=== PATIENT | male | born 1995 | race Caucasian/White ===

== ENCOUNTER 2018-11-15 01:54 | Inpatient (IN) ==
[2018-11-15] MEDS ORDERED: Mag Hydrox/Al Hydrox/Simeth 30 ML UDC PO PRN (03:49)
[2018-11-15] MEDS ORDERED: MOM Conc 10 ML UD.LIQ PO PRN (03:49)
[2018-11-15] MEDS ORDERED: *HR* LORazepam 2 MG/ML VIAL IM PRN (03:49)
[2018-11-15] MEDS ORDERED: *HR* LORazepam 1 MG TABLET PO PRN (03:49)
[2018-11-15] MEDS ORDERED: traZODone 50 MG TABLET PO PRN (03:49)
[2018-11-15] MEDS ORDERED: Ibuprofen 400 MG TABLET PO PRN (03:49)
[2018-11-15] MEDS ORDERED: Haloperidol Lactate 5 MG/ML VIAL IM PRN (03:49)
[2018-11-15] MEDS ORDERED: hydrOXYzine pamoate 25 MG CAPSULE PO PRN (03:49)
--- NOTE | 2018-11-15 08:29 | Psychiatry History & Physical ---
Date of Encounter: 11/15/18 Time of Encounter: 08:30 History of Present Illness Patient Stated Chief Complaint: "I want to kill myself" Medicare Admission Attestation: For traditional Medicare patients the provided hospital inpatient services are reasonable and necessary and in the case of services not specified as inpatient-only under 42 CFR 419.22 (n), that they are appropriately provided as inpatient services in accordance 42 CFR 412.3. For Critical Access Hospital the patient may reasonably be expected to be discharged or transferred to a hospital within 96 hours after admission to the Critical Access Hospital. Admitted From: Direct Admit Plans for Post Hospital Care: Home History of Present Illness: Mr. Valderrama is a 23 year old male who presented to an outside crisis center for suicidal thoughts and 5 weeks of depression. He broke up with his girlfriend of 2 years 5 weeks ago and ever since then has been having increasing depression with sad mood, decreased interest (he used to enjoy basketball now cannot enjoy that), decreased concentration, feelings of guilt and worthlessness, hopelessness, poor sleep, he has not been eating much and has lost [address] thin frame. He also reports some excessive worry and dwelling on what he did wrong in the relationship. No panic attacks. No history of manic symptoms. No psychotic symptoms. Past Med Surg Social Fam HX - Past Medical History Medical history: no medical history - Past Psychiatric History Psychiatric history: Reports: ADHD Past psychiatric history details: He was briefly treated for ADHD as a child. He cannot remember the name of the medication he tried. He said he grew out of it. He has never been in a psychiatric hospital and has no prior suicide attempts. Family psychiatric history: Yes Family Psychiatric History Details: His maternal grandmother had depression and his father and most of his father's family have depression and anxiety. His father used to abuse drugs. There are no suicides in the family. Family History of Suicide: None - Past Surgical History Surgical History: non-contributory, tonsillectomy - Social History Smoking Status: Current some day smoker Smokeless Tobacco Status: No Alcohol use: none Drug use: marijuana Additional substance use detail: He said he recently quit marijuana Occupational status: employed Current living situation: Home, With Family Activity Level: Independent ambulation Recent Out of Country Travel Within the Last 8 Weeks: No Exposure or Possible Exposure to Illness During Travel: No Additional social history: He was living with his girlfriend however when they broke up she kicked him out he now lives with his mother, his brother, and his mother's boyfriend. He said this is an okay living situation. After the breakup he quit one of his jobs because he felt unable to complete it due to his depression. He did recently start back a 2 day a week position. He has some college education. Medications & Allergies No Known Home Drugs 11/15/18 [History] Allergy/AdvReac Type Severity Reaction Status Date / Time No Known Allergies Allergy Verified 11/15/18 03:49 Review of Systems Constitutional: Denies: fever Eyes: Denies: eye pain Ears, Nose, Throat: Denies: ear pain Cardiovascular: Denies: chest pain Respiratory: Denies: cough Gastrointestinal: Denies: abdominal pain Genitourinary male: Denies: urgency Musculoskeletal: Denies: back pain Integumentary: Denies: rash Neurological: Denies: headache Psychiatric: Reports: depression, anxiety, abnormal sleep pattern, suicidal ideation, change in appetite, anhedonia, difficulty concentrating, hopelessness. Denies: homicidal ideation, auditory hallucinations, visual hallucinations Endocrine: Reports: fatigue Hematologic/Lymphatic: Denies: easy bleeding Allergic/Immunologic: Denies: facial swelling Exam - HEENT Head exam IM: Present: atraumatic Eye exam IM: Present: EOMI ENT exam IM: Present: mucous membranes moist - Neurological Neurological exam: Present: CN II-XII intact - Respiratory Respiratory exam IM: Absent: respiratory distress - GI/Abdominal GI/Abdominal exam IM: Present: no peritoneal signs - Extremities Extremities exam IM: Present: full ROM - Skin Skin exam IM: Absent: abrasion - Constitutional Vitals: Temp Pulse Resp BP Pulse Ox 98.5 F 62 18 114/72 96 11/15/18 01:55 11/15/18 01:55 11/15/18 01:55 11/15/18 01:55 11/15/18 01:55 General appearance: age & developmentally appropriate, thin - Musculoskeletal Gait: slow Station: stooped Strength & Tone: normal for patient - Psychiatric Patient Orientation: Yes Person, Yes Time, Yes Place, Yes Circumstance Level of alertness: Alert Behavior: calm Psychomotor activity: Slowed Eye Contact: Minimal Contact Mood Description: Depressed Patient description of mood: Sad Affect description: dysphoric Speech Volume: Soft/Quiet Speech pattern: slowed Language & Vocabulary: consistent with education Thought Process: Intact Thought Content: Yes Suicidal ideation, No Homicidal ideation Perceptual Disturbances: No Auditory hallucinations, No Visual hallucinations Attention Span Ability: Capable of Focused Attention Memory Description: Grossly Intact Patient Reliability: Reliable Historian Fund of knowledge: Yes abstraction ability, Yes average, Yes aware of current events Intelligence Estimate: Average Judgment: Fair Insight: Partial Assessment and Plan (1) Major depression Current visit: Yes Status: Acute Plan: Admit inpatient for safety and stabilization, Close observation, Suicide Precautions per unit protocol, Encourage participation in unit milieu, Group Therapy, Monitor sleep, Monitor appetite Additional Plan: Start sertraline 25 mg by mouth every morning for depression and anxiety. Encourage group attendance. Therapist to work on linkage Risks, benefits, side effects, alternatives discussed w/pt: Yes Patient agreeable to treatment: Yes Plans for Post Hospital Care: Home Qualifiers: Major depression recurrence: single episode Active/Remission status: currently active Major depression episode severity: severe Psychotic features: without psychotic features Qualified Code(s): F32.2 - Major depressive disorder, single episode, severe without psychotic features
--- NOTE | 2018-11-16 08:56 | Discharge Summary ---
Date of Encounter: 11/16/18 Time of Encounter: 08:05 Diagnosis - Discharge Diagnosis (1) Major depression Status: Acute Qualifiers: Major depression recurrence: single episode Active/Remission status: currently active Major depression episode severity: severe Psychotic features: without psychotic features Qualified Code(s): F32.2 - Major depressive disorder, single episode, severe without psychotic features Medications - Discharge Medications Prescriptions: traZODone [TraZODone] 50 mg PO HS PRN #15 tablet PRN Reason: Insomnia Sertraline [Zoloft] 25 mg PO DAILY #15 tablet Sertraline [Zoloft] 25 mg PO DAILY #15 tablet 11/16/18 [Rx] traZODone [TraZODone] 50 mg PO HS PRN #15 tablet 11/16/18 [Rx] Allergy/AdvReac Type Severity Reaction Status Date / Time No Known Allergies Allergy Verified 11/15/18 03:49 Provider Date of admission: 11/15/18 01:54 Primary care physician: PCP NONE Discharging clinician: Suzanne Kaur Psychiatry Exam - Constitutional Vitals: Temp Pulse Resp BP Pulse Ox 98.4 F 62 18 118/73 98 11/15/18 21:21 11/15/18 21:21 11/15/18 21:21 11/15/18 21:21 11/15/18 21:21 General appearance: age & developmentally appropriate, well-groomed, well- nourished - Musculoskeletal Gait: normal Station: relaxed Strength & Tone: normal for patient - Psychiatric Patient Orientation: Yes Person, Yes Time, Yes Place, Yes Circumstance Level of alertness: Alert Behavior: calm, cooperative Psychomotor activity: Normal Eye Contact: Maintains Eye Contact Mood Description: Euthymic/stable Patient description of mood: Good Affect description: congruent with mood, full range Speech Volume: Normal Speech pattern: normal rate, normal rhythm, normal tone, fluent, spontaneous Language & Vocabulary: consistent with education Thought Process: Linear, Goal Oriented Thought Content: No Suicidal ideation, No Homicidal ideation, No Overt delusions Perceptual Disturbances: No Auditory hallucinations, No Visual hallucinations Attention Span Ability: Capable of Focused Attention Memory Description: Grossly Intact Patient Reliability: Reliable Historian Fund of knowledge: Yes abstraction ability, Yes aware of current events Intelligence Estimate: Average Judgment: Good Insight: Full Hospital Course Hospital course: Mr. Valderrama is a 23 year old male who was admitted for depression and suicidal ideations. He was started on Zoloft.Patient was educated of diagnosis and the risk-benefit side effects of this alternative treatment options and was monitored for responsiveness and side effects. Mood anxiety sleep and appetite interest improved as did future orientation. Self-harm thoughts subsided and mood stabilized. Patient was able to attend both individual and group therapy sessions as well as meet with the psychiatrist daily and urged to discuss any medication or treatment issues or other concerns. The patient was educated primarily by verbal means about their diagnosis and manifestations in their life. The option for treatment including group and individual therapy programming was offered to the patient in addition to the use of medications with all their potential risks, benefits, and side effects as well as the risks of not taking medication and non-adhereance were discussed with the patient at length. The patient was given the opportunity to ask questions and was noted to participate in the treatment in the planning process. The patient felt ready and eager to be discharged from the inpatient psychiatric unit to continue on with treatment as an outpatient. The patient agreed that is they were safe for this disposition. The patient was considered to be able to participate in informed consent and decision making with respect to medical, legal, and financial issues of the time of discharge. At the time of discharge the patient adamantly denied any concerns for lethality including suicidal or homicidal thoughts ideations or plans and was future oriented toward ongoing mental health care, medical follow-up and sobriety. Time spent discussing smoking cessation with patient: 3 to 10 minutes Does patient wish to continue nicotine replacement upon disc: No - Time Spent with Patient Total time spent providing and/or coordinating discharge services: 25 Less than 30 minutes Specific discharge activities: Interval history reviewed. Available labs reviewed . Psychotherapy provided. Patient had an opportunity to ask questions and address concerns. Patient was in agreement with the treatment plan. The risks benefits and side effects of medications were discussed with the patient, including alternatives and treatment. The patient was educated on the abstaining from any alcohol or illicit substances, following up with all scheduled appointments, and taking all medications as prescribed. Assessment and Plan - Patient/Caregiver Discharge Instructions Activity: resume usual activities as tolerated, return to work Diet: regular diet Additional Instructions: Continue current medications. Follow up with outpatient mental health. Encourage continued therapy in a group or individual setting. The patient was discharged to home. - Follow up Plan Follow up with: NONE,PCP [Primary Care Provider] - Functional capacity at discharge: independent ambulation Overall status at discharge: Stable Disposition: Home, Self-Care Quality - Multiple Antipsychotics Patient discharged on 2 or more antipsychotic medications: No Procedures - Procedures Procedures: Medication Management, Crisis Stabilization, Supportive Therapy, Group Therapy, Psychoeducational Therapy
[2018-11-16 10:30] VITALS: BP 125/85
== END 2018-11-16 11:30 | disposition home or self-care (01) | DRG 751 ==
LOC: 1ANU 01:54
PROVIDERS: ADMIT Psychiatry & Neurology Psychiatry; ATTEND Psychiatry & Neurology Psychiatry